=== PATIENT | female | born 1990 | race African-American/Black ===

== ENCOUNTER 2017-10-24 07:38 | Emergency (ER) | payer OTHER ==
[2017-10-24 07:44] VITALS: BP 113/82; PULSE 105; TEMP 98.8; BMI 39.1
[2017-10-24] MEDS ORDERED: IBUPROFEN 600 MG TABLET (FP) PO ONE ×2 (08:42→08:45)
--- NOTE | 2017-10-24 08:48 | PDOC ---
History of Present Illness - General Chief Complaint: Cold Symptoms Stated Complaint: TEMPERATURE,WEAK,DIZZINESS Time Seen by Provider: 10/24/17 08:38 History Source: Patient Exam Limitations: No Limitations - History of Present Illness Initial Comments: 10/24/17 08:43 27 yr female with c/o body aches nasal congestion nausea for 3 days. pt states she vomited yesterday none today. took tylenol at 5am. history of PCOS Severity: reports: mild Past History - Past Medical History Allergies/Adverse Reactions: Allergies Allergy/AdvReac Type Severity Reaction Status Date / Time No Known Allergies Allergy Verified 10/24/17 07:41 Home Medications: Ambulatory Orders NK [No Known Home Medication] 10/24/17 COPD: No - Suicide/Smoking/Psychosocial Hx Smoking History: Never smoked Have you smoked in the past 12 months: No Information on smoking cessation initiated: No Hx Alcohol Use: No Drug/Substance Use Hx: No Substance Use Type: None Respiratory Specific PMHX - Complaint Specific PMHX Angina: No Bronchitis: No Pneumonia: No Pulmonary Embolus: No TB (Tuberculosis): No Review of Systems - Review of Systems Able to Perform ROS?: Yes Is the patient limited Guinean proficient: No Constitutional: Yes: Symptoms Reported, Fever HEENTM: Yes: Nose Congestion Respiratory: Yes: Cough *Physical Exam - Vital Signs Last Vital Signs Temp Pulse Resp BP Pulse Ox 98.8 F 105 H 18 113/82 100 10/24/17 07:43 10/24/17 07:43 10/24/17 07:43 10/24/17 07:43 10/24/17 07:43 - Physical Exam General Appearance: Yes: Nourished, Appropriately Dressed HEENT: positive: EOMI, NATALIIA, Normal Voice Neck: positive: Supple. negative: Tender, Lymphadenopathy (R), Lymphadenopathy (L) Respiratory/Chest: positive: Lungs Clear, Normal Breath Sounds. negative: Chest Tender Cardiovascular: positive: Regular Rhythm, Regular Rate Gastrointestinal/Abdominal: positive: Normal Bowel Sounds, Soft Musculoskeletal: positive: Normal Inspection Extremity: positive: Normal Capillary Refill, Normal Inspection, Normal Range of Motion Integumentary: positive: Normal Color, Dry, Warm Neurologic: positive: Fully Oriented, Alert, Normal Mood/Affect, Normal Response , Motor Strength 5/5 Medical Decision Making - Medical Decision Making 10/24/17 08:45 cc: cough, body aches no abd pain or back pain tolerating fluids today will treat for flu like illness *DC/Admit/Observation/Transfer Diagnosis at time of Disposition: Flu-like symptoms - Discharge Dispostion Disposition: HOME Condition at time of disposition: Good - Referrals - Patient Instructions Printed Discharge Instructions: DI for Viral Upper Respiratory Infection -- Adult Additional Instructions: drink pleanty of fluids take motrin as needed for fever and body aches drink pleanty of fluids and increase vitamin C and Zinc intake follow with your doctor for any worsening symptoms - Post Discharge Activity Forms/Work/School Notes: Back to Work
== END 2017-10-24 08:50 | disposition home or self-care (01) ==
LOC: JERFT 07:38
DX: J06.9 Acute upper respiratory infection, unspecified (principal); B97.89 Other viral agents as the cause of diseases classified elsewhere
CPT/HCPCS: 99281-25

== ENCOUNTER 2017-10-25 01:05 | Emergency (ER) | payer OTHER ==
--- NOTE | 2017-10-25 01:29 | PDOC ---
History of Present Illness - General Stated Complaint: NAUSEA,WEAKNESS Time Seen by Provider: 10/25/17 01:28 Past History - Past Medical History Allergies/Adverse Reactions: Allergies Allergy/AdvReac Type Severity Reaction Status Date / Time No Known Allergies Allergy Verified 10/24/17 07:41 Home Medications: Ambulatory Orders NK [No Known Home Medication] 10/24/17 COPD: No - Suicide/Smoking/Psychosocial Hx Smoking History: Never smoked Have you smoked in the past 12 months: No Hx Alcohol Use: No Drug/Substance Use Hx: No Substance Use Type: None
[2017-10-25] MEDS ORDERED: SODIUM CHLORIDE 0.9% 1000 ML INFUS.BAG IV ONE (01:49)
--- NOTE | 2017-10-25 01:49 | PDOC ---
History of Present Illness - General Chief Complaint: Nausea Stated Complaint: NAUSEA,WEAKNESS Time Seen by Provider: 10/25/17 01:28 - History of Present Illness Initial Comments: 10/25/17 03:30 27 y.o. female with a PMH of PCOS who presents this morning c/o 2 day h/o generalized body ache, loose stools and nausea. Patient denies any associated subjective fevers/chills, vomiting, abdominal pain. 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 Patient's LMP was September 2017 and she states she is not currently sexually active/denies possibility of . Of note patient states she was evaluated in [facility] earlier today however her symptoms worsened prompting her return visit to the ED. NKDA Surgical: denies Social: denies nicotine, 2-3 alcoholic drinks weekly, denies recreational drugs PMD: Dr. Julio (patient cannot recall full name) in [place] Past History - Past Medical History Allergies/Adverse Reactions: Allergies Allergy/AdvReac Type Severity Reaction Status Date / Time No Known Allergies Allergy Verified 10/25/17 01:33 Home Medications: Ambulatory Orders NK [No Known Home Medication] 10/24/17 COPD: No - Suicide/Smoking/Psychosocial Hx Smoking History: Never smoked Have you smoked in the past 12 months: No Information on smoking cessation initiated: No Hx Alcohol Use: No Drug/Substance Use Hx: No Substance Use Type: None Review of Systems - Review of Systems Constitutional: No: Chills, Fever Respiratory: No: Shortness of Breath Cardiac (ROS): No: Chest Pain ABD/GI: No: Constipated, Diarrhea, Nausea, Vomiting : No: Burning, Dysuria *Physical Exam - Vital Signs Last Vital Signs Temp Pulse Resp BP Pulse Ox 98.1 F 71 18 109/68 100 10/25/17 01:26 10/25/17 01:26 10/25/17 01:26 10/25/17 01:26 10/25/17 01:26 - Physical Exam General Appearance: Yes: Nourished, Appropriately Dressed, Obese HEENT: negative: Pharyngeal Erythema, Tonsillar Exudate, Tonsillar Erythema, TM Bulging, TM Erythema Neck: positive: Trachea midline, Supple Respiratory/Chest: positive: Lungs Clear Cardiovascular: positive: S1, S2 Extremity: positive: Normal Capillary Refill, Normal Inspection Integumentary: positive: Normal Color, Dry, Warm Neurologic: positive: Fully Oriented, Alert ED Treatment Course - LABORATORY CBC & Chemistry Diagram: 10/25/17 02:02 10/25/17 02:02 Medical Decision Making - Medical Decision Making 10/25/17 15:24 27 y.o. female with body aches, loose stools and nausea. Serum (-). Influenza A/B negative. No leukocytosis or electrolyte derangement. 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 Patient counseled on return precautions and instructed to f/u with PMD. *DC/Admit/Observation/Transfer Diagnosis at time of Disposition: Flu-like symptoms - Discharge Dispostion Disposition: HOME Condition at time of disposition: Good Admit: No - Referrals - Patient Instructions Printed Discharge Instructions: DI for Nausea -- Adult Additional Instructions: You were evaluated today for flu-like symptoms and loose stools. All of your labs showed no concerning findings and your influenza test was negative. Increase your clear fluid intake and take Motrin for relief of your body aches. Follow-up with your primary care doctor in 3-5 days and return to the Emergency Department for any new/worsening/concerning symptoms. - Post Discharge Activity
[2017-10-25 02:05] VITALS: BP 109/68; PULSE 71; TEMP 98.1; BMI 37.1
[2017-10-25] MEDS ORDERED: ONDANSETRON 4 MG/2 ML VIAL ONE (02:13)
[2017-10-25 02:26] LABS: BASO % 0.6 % (0-2.0); EOS % 0.2 % (0-4.5); HEMATOCRIT 38.5 % (32.4-45.2); LYMPH % 17.3 % (8-40); MCHC 33.9 g/dl (32.0-36.0); MEAN CELL VOLUME 88.5 fl (80-96); MEAN PLT VOLUME 8.4 fl (7.5-11.1); MONO % 6.9 % (3.8-10.2); PLATELET COUNT 272 K/MM3 (134-434); RBC 4.34 M/mm3 (3.60-5.2); RDW 13.2 % (11.6-15.6); WHITE BLOOD COUNT 7.5 K/mm3 (4.0-10.0)
[2017-10-25 02:45] LABS: ALBUMIN 3.6 g/dl (3.4-5.0); ANION GAP 11 (8-16); BILIRUBIN,TOTAL 0.3 mg/dL (0.2-1.0); BLOOD UREA NITROGEN 7 mg/dL (7-18); CALCIUM 8.8 mg/dL (8.5-10.1); CHLORIDE 103 mmol/L (98-107); CO2 22 mmol/L (21-32); CREATININE 0.8 mg/dL (0.55-1.02); GLUCOSE,RANDOM 107 mg/dL (74-106); POTASSIUM 4.1 mmol/L (3.5-5.1); SGOT/AST 38 U/L (15-37); SGPT/ALT 73 U/L (12-78); SODIUM 136 mmol/L (136-145); TOT PROT 7.4 g/dl (6.4-8.2)
[2017-10-25 02:46] LABS: ALK PHOS 62 U/L (45-117)
== END 2017-10-25 04:05 | disposition home or self-care (01) ==
LOC: JER 01:05
DX: J11.2 Influenza due to unidentified influenza virus with gastrointestinal manifestations (principal)
CPT/HCPCS: 36415; 80053; 84703; 85025; 87804; 99283-25

== ENCOUNTER 2019-05-30 16:34 | Emergency (ER) | payer OTHER ==
--- NOTE | 2019-05-30 16:43 | PDOC ---
Rapid Medical Evaluation Time Seen by Provider: 05/30/19 16:39 Medical Evaluation: Allergies Allergy/AdvReac Type Severity Reaction Status Date / Time No Known Allergies Allergy Verified 05/30/19 16:37 05/30/19 16:40 Pt reports piercing headaches for the past two weeks. Pt states that the pain is above the L taoism and that when she sneezes she feels the pain. Denies dizziness and vomiting. LMP 01/07, pt on depo Exam: No gross deficits Orders: Labs, IV Pt to proceed to the ER for further evaluation Discharge Disposition - Diagnosis Headache Qualifiers: Headache type: unspecified Headache chronicity pattern: unspecified pattern Intractability: not intractable Qualified Code(s): R51 - Headache - Referrals - Patient Instructions - Post Discharge Activity
[2019-05-30 16:44] VITALS: BMI 41.0
[2019-05-30 17:11] LABS: BASO % 0.7 % (0-2.0); EOS % 2.9 % (0-4.5); HEMATOCRIT 38.6 % (32.4-45.2); HEMOGLOBIN 12.8 GM/dL (10.7-15.3); LYMPH % 44.6 % (8-40); MCH 28.7 pg (25.7-33.7); MEAN CELL VOLUME 86.9 fl (80-96); MEAN PLT VOLUME 8.5 fl (7.5-11.1); NEUT % 43.8 % (42.8-82.8); PLATELET COUNT 293 K/MM3 (134-434); RBC 4.44 M/mm3 (3.60-5.2); RDW 14.6 % (11.6-15.6); WHITE BLOOD COUNT 7.3 K/mm3 (4.0-10.0)
[2019-05-30] MEDS ORDERED: SODIUM CHLORIDE 1,000 ML IV STA (17:29)
[2019-05-30] MEDS ORDERED: ACETAMINOPHEN 1000 MG/100 ML VIAL (NON FORMULARY) IVPB ONE (17:29)
[2019-05-30] MEDS ORDERED: METOCLOPRAMIDE HCL INJECTION 10 MG/2 ML VIAL IVPB ONE (17:29)
[2019-05-30] MEDS ORDERED: METOCLOPRAMIDE HCL INJECTION 10 MG/2 ML VIAL ONE (17:38)
[2019-05-30] MEDS ORDERED: ACETAMINOPHEN INJECTION 100 ML IVPB ONE (17:38)
--- NOTE | 2019-05-30 17:40 | PDOC ---
*Physical Exam - Vital Signs Last Vital Signs Temp Pulse Resp BP Pulse Ox 98.2 F 92 H 18 122/83 99 05/30/19 16:40 05/30/19 16:40 05/30/19 16:40 05/30/19 16:40 05/30/19 16:40 ED Treatment Course - LABORATORY CBC & Chemistry Diagram: 05/30/19 16:57 05/30/19 16:57 - ADDITIONAL ORDERS Additional order review: Laboratory Results 05/30/19 16:56 Urine HCG, Qual Negative 05/30/19 16:57 RBC 4.44 MCV 86.9 MCHC 33.0 RDW 14.6 D MPV 8.5 Neutrophils % 43.8 D Lymphocytes % 44.6 H D Monocytes % 8.0 Eosinophils % 2.9 D Basophils % 0.7 Medical Decision Making - Medical Decision Making 05/30/19 17:39 Ms Juárez presents with a progressive worsening left sided headache No focal deficits Reglan and Tylenol Pt seen by Midlevel Provider under my direct supervision Pt interviewed and examined Ancillary studies reviewed I agree with plan as outlined by Midlevel Provider PT signed out pending re assessment *DC/Admit/Observation/Transfer Diagnosis at time of Disposition: Migraine - Discharge Dispostion Disposition: HOME Condition at time of disposition: Improved - Referrals Referrals: Luke Larson MD [Staff Physician] - 2 Days Gerald Alcazar MD [Staff Physician] - 2 Days - Patient Instructions Printed Discharge Instructions: DI for Migraine Additional Instructions: Thank you for choosing [facility]. It was a pleasure taking care of you. You may take Motrin 600 mg every 6 hours by mouth as needed for mild to moderate pain. Take Motrin with food. Please follow-up in primary care clinic You were also referred to neurologist Return to the Emergency Department if your symptoms worsen or persist, you have fever, vomiting, weakness of extremities (arms and/or legs), changes in vision or walking or other concerning symptoms. - Post Discharge Activity
[2019-05-30 17:42] LABS: ALBUMIN 3.7 g/dl (3.4-5.0); BILIRUBIN,TOTAL 0.4 mg/dL (0.2-1); BLOOD UREA NITROGEN 9.4 mg/dL (7-18); CALCIUM 9.6 mg/dL (8.5-10.1); CREATININE 0.8 mg/dL (0.55-1.3); POTASSIUM 3.9 mmol/L (3.5-5.1); TOT PROT 7.6 g/dl (6.4-8.2)
--- NOTE | 2019-05-30 18:31 | PDOC ---
History of Present Illness - General Chief Complaint: Headache Stated Complaint: HIGH BLOOD PRESSURE Time Seen by Provider: 05/30/19 16:39 History Source: Patient Exam Limitations: No Limitations Past History - Past Medical History Allergies/Adverse Reactions: Allergies Allergy/AdvReac Type Severity Reaction Status Date / Time No Known Allergies Allergy Verified 05/30/19 16:37 Home Medications: Ambulatory Orders NK [No Known Home Medication] 10/24/17 COPD: No - Suicide/Smoking/Psychosocial Hx Smoking History: Never smoked Have you smoked in the past 12 months: No Hx Alcohol Use: No Drug/Substance Use Hx: No Substance Use Type: None *Physical Exam - Vital Signs Last Vital Signs Temp Pulse Resp BP Pulse Ox 98.2 F 92 H 18 122/83 99 05/30/19 16:40 05/30/19 16:40 05/30/19 16:40 05/30/19 16:40 05/30/19 18:15 - Physical Exam General Appearance: No: Apparent Distress HEENT: positive: EOMI, NATALIIA, Other (vision 20/20 left eye, 20/20 right eye). negative: Nasal Congestion, Rhinorrhea, Sinus Tenderness Respiratory/Chest: positive: Lungs Clear, Normal Breath Sounds. negative: Respiratory Distress Cardiovascular: positive: Regular Rhythm, Regular Rate, S1, S2. negative: Murmur Neurologic: positive: brick tosser II-XII NML intact, Fully Oriented, Alert, Normal Mood/ Affect, Motor Strength 5/5. negative: Facial Droop, Sensory Deficit, Confused, Disoriented ED Treatment Course - LABORATORY CBC & Chemistry Diagram: 05/30/19 16:57 05/30/19 16:57 - ADDITIONAL ORDERS Additional order review: Laboratory Results 05/30/19 05/30/19 16:57 16:56 Sodium 136 Potassium 3.9 Chloride 102 Carbon Dioxide 25 Anion Gap 8 BUN 9.4 Creatinine 0.8 Est GFR (CKD-EPI)AfAm 117.10 Est GFR (CKD-EPI)NonAf 101.04 Random Glucose 90 Calcium 9.6 Total Bilirubin 0.4 AST 14 L ALT 23 Alkaline Phosphatase 59 Total Protein 7.6 Albumin 3.7 Urine HCG, Qual Negative 05/30/19 16:57 RBC 4.44 MCV 86.9 MCHC 33.0 RDW 14.6 D MPV 8.5 Neutrophils % 43.8 D Lymphocytes % 44.6 H D Monocytes % 8.0 Eosinophils % 2.9 D Basophils % 0.7 - Medications Given in the ED: ED Medications Discontinued Medications Generic Name Dose Route Start Last Admin Trade Name Aranza PRN Reason Stop Dose Admin Acetaminophen 1,000 mg 05/30/19 17:29 05/30/19 17:51 Ofirmev Injection - IVPB 05/30/19 17:30 1,000 mg ONCE ONE Administration Metoclopramide HCl 10 mg 05/30/19 17:29 05/30/19 17:51 Reglan Injection - IVPB 05/30/19 17:30 10 mg ONCE ONE Administration Medical Decision Making - Medical Decision Making 28 y/o F with no sig pmh presents with L temporal PHAN x 1.5 weeks, gradually getting worse, not worsened by anything. Has not had this type of headache before. Has been taking Tylenol and Alleve with some relief of pain. Denies visual/gait changes, sob, cp, vomiting, numbness/tingling/weakness of extremities, eye pain. Likely migraine headache patient was given Tylenol, Reglan and immediately felt better states headache is gone stable for dc 05/30/19 18:27 *DC/Admit/Observation/Transfer Diagnosis at time of Disposition: Migraine Qualifiers: Migraine type: without aura Status migrainosus presence: without status migrainosus Intractability: not intractable Qualified Code(s): G43.009 - Migraine without aura, not intractable, without status migrainosus - Discharge Dispostion Disposition: HOME Condition at time of disposition: Improved Decision to Admit order: No - Referrals Referrals: Luke Larson MD [Staff Physician] - 2 Days Gerald Alcazar MD [Staff Physician] - 2 Days - Patient Instructions Printed Discharge Instructions: DI for Migraine Additional Instructions: Thank you for choosing [facility]. It was a pleasure taking care of you. You may take Motrin 600 mg every 6 hours by mouth as needed for mild to moderate pain. Take Motrin with food. Please follow-up in primary care clinic You were also referred to neurologist Return to the Emergency Department if your symptoms worsen or persist, you have fever, vomiting, weakness of extremities (arms and/or legs), changes in vision or walking or other concerning symptoms. - Post Discharge Activity
[2019-05-30 18:48] VITALS: BP 120/77; PULSE 77; TEMP 98
== END 2019-05-30 18:49 | disposition home or self-care (01) ==
LOC: JER 16:34
PROC: 3E033NZ Introduction of Analgesics, Hypnotics, Sedatives into Peripheral Vein, Percutaneous Approach (ICD-10-PCS; principal; 2019-05-30)
PROC: 3E033GC Introduction of Other Therapeutic Substance into Peripheral Vein, Percutaneous Approach (ICD-10-PCS; 2019-05-30)
PROC: 3E0337Z Introduction of Electrolytic and Water Balance Substance into Peripheral Vein, Percutaneous Approach (ICD-10-PCS; 2019-05-30)
DX: G43.909 Migraine, unspecified, not intractable, without status migrainosus (principal)
CPT/HCPCS: 36415; 80053; 84703; 85025; 99284-25; J0131; J7030